=== PATIENT | female | born 1995 | race Caucasian/White ===

== ENCOUNTER 2016-08-01 18:59 | Outpatient (CLI) | payer MEDICAID | END 2016-08-01 19:00 | disposition home or self-care (01) | LOC: EMS 18:59 | PROVIDERS: ATTEND Surgery | DX: R56.9 Unspecified convulsions (principal) | CPT/HCPCS: A0425; A0429 ==

== ENCOUNTER 2016-08-01 19:18 | Emergency (ER) | payer MEDICAID ==
--- NOTE | 2016-08-01 19:59 | ED Physician Documentation ---
PD HPI SEIZURE - Stated complaint Stated Complaint: SZ - Chief complaint Chief Complaint: Neuro - History obtained from History obtained from: Patient - History of Present Illness Timing - onset: How many minutes ago (45), Today Witnessed: Witnessed Number of seizures: Single, Lasted minutes (about 3 minutes) Description of seizure activity: Generalized Injury during seizure: Bit tongue, Other (did not have injury with this one, but had one this morning and fell against dresser, striking rihgt face and head , with pain face and headache today.) Contributing factors: Substance abuse (had used cocaine 2 days ago. Denies other drugs. Has had few other seizures the past few weeks, with one at school in [place]. Had initial one about 6-8 months ago, prior to that no seizure history. Initial one was with cocaine use as well but has had other seizures without drug use.). No: Low blood sugar Similar symptoms before: No diagnosis (apparent seizures. Seen at [facility] in [place] and had head CT and labs few weeks ago after a seizure. Was suggested to see PMD/neurology. She has come to [facility] as family lives here but is staying with friends.) Recently seen: Clinic Review of Systems Constitutional: denies: Fever, Chills Eyes: denies: Loss of vision, Photophobia Nose: denies: Rhinorrhea / runny nose, Congestion Throat: denies: Sore throat Respiratory: denies: Cough GI: reports: Nausea. denies: Abdominal Pain, Vomiting, Diarrhea : reports: Irregular menses (has very infrequent periods normally. Denies eating disorder.). denies: Dysuria, Frequency, Discharge Skin: denies: Abrasion (s), Laceration (s) Neurologic: reports: Headache (today, but not regularly with the seizures.), Head injury (this mornign with seizure). denies: Focal weakness, Numbness, Altered mental status Psychiatric: denies: Depressed, Delusions, Anxiety, Insomnia Endocrine: denies: Weight loss, Weight gain Immunocompromised: denies: Immunocompromised PD PAST MEDICAL HISTORY - Past Medical History Cardiovascular: None Respiratory: None Neuro: Seizure disorder Endocrine/Autoimmune: None Psych: Depression, Anxiety Derm: None - Past Surgical History Past Surgical History: No - Present Medications Home Medications: Ambulatory Orders Medication Instructions Recorded Confirmed Levetiracetam [Keppra] 500 mg PO BID #60 tablet 08/01/16 - Allergies Allergies/Adverse Reactions: Allergies Allergy/AdvReac Type Severity Reaction Status Date / Time No Known Drug Allergies Allergy Verified 08/01/16 19:42 - Social History Does the pt smoke?: No Smoking Status: Never smoker Does the pt drink ETOH?: No Does the pt have substance abuse?: Yes Substance Use and Type: Cocaine/Crack - Family History Family history: reports: Other (no FH of seizures) - Immunizations Immunizations are current?: Yes - POLST Patient has POLST: No Results - Vitals Vitals: Vital Signs - 24 hr 08/01/16 08/01/16 08/01/16 19:19 20:22 22:16 Temperature 37 C Heart Rate 112 H 87 80 Respiratory 18 15 16 Rate Blood Pressure 147/96 H 137/81 H 144/80 H O2 Saturation 100 100 100 08/01/16 22:46 Temperature Heart Rate 78 Respiratory 14 Rate Blood Pressure 115/58 L O2 Saturation 99 Oxygen O2 Source Room air - Labs Labs: Laboratory Tests 08/01/16 08/01/16 08/01/16 21:00 21:00 21:00 WBC 10.6 RBC 4.77 Hgb 14.6 Hct 42.4 MCV 88.9 MCH 30.5 MCHC 34.3 RDW 12.5 Plt Count 241 MPV 9.0 Neut # 7.8 H Lymph # 1.8 Lane # 0.9 Eos # 0.1 Baso # 0.0 Absolute Nucleated RBC 0.01 Nucleated RBCs 0.1 Sodium 135 Potassium 3.7 Chloride 104 Carbon Dioxide 23 Anion Gap 8.0 BUN 5 L Creatinine 0.6 Estimated GFR (MDRD) 129 Glucose 87 Calcium 9.6 Magnesium 2.0 Total Bilirubin 1.7 H AST 23 ALT 17 Alkaline Phosphatase 56 Total Protein 7.6 Albumin 4.6 Globulin 3.0 Albumin/Globulin Ratio 1.5 Lipase 20 L TSH 0.63 Urine Color Urine Clarity Urine pH Ur Specific [place] Urine Protein Urine Glucose (UA) Urine Ketones Urine Occult Blood Urine Nitrite Urine Bilirubin Urine Urobilinogen Ur Leukocyte Esterase Ur Microscopic Review Urine Culture Comments Urine HCG, Qual Urine Opiates Screen Ur Oxycodone Screen Urine Methadone Screen Ur Propoxyphene Screen Ur Barbiturates Screen Ur Tricyclics Screen Ur Phencyclidine Scrn Ur Amphetamine Screen U Methamphetamines Scrn U Benzodiazepines Scrn Urine Cocaine Screen U Cannabinoids Screen Ethyl Alcohol < 5.0 05/30/17 05/30/17 22:00 22:00 WBC RBC Hgb Hct MCV MCH MCHC RDW Plt Count MPV Neut # Lymph # Lane # Eos # Baso # Absolute Nucleated RBC Nucleated RBCs Sodium Potassium Chloride Carbon Dioxide Anion Gap BUN Creatinine Estimated GFR (MDRD) Glucose Calcium Magnesium Total Bilirubin AST ALT Alkaline Phosphatase Total Protein Albumin Globulin Albumin/Globulin Ratio Lipase TSH Urine Color YELLOW Urine Clarity CLEAR Urine pH 5.5 Ur Specific [place] 1.010 Urine Protein NEGATIVE Urine Glucose (UA) NEGATIVE Urine Ketones 15 H Urine Occult Blood NEGATIVE Urine Nitrite NEGATIVE Urine Bilirubin NEGATIVE Urine Urobilinogen 0.2 (NORMAL) Ur Leukocyte Esterase NEGATIVE Ur Microscopic Review NOT INDICATED Urine Culture Comments NOT INDICATED Urine HCG, Qual NEGATIVE Urine Opiates Screen NEGATIVE Ur Oxycodone Screen NEGATIVE Urine Methadone Screen NEGATIVE Ur Propoxyphene Screen NEGATIVE Ur Barbiturates Screen NEGATIVE Ur Tricyclics Screen NEGATIVE Ur Phencyclidine Scrn NEGATIVE Ur Amphetamine Screen NEGATIVE U Methamphetamines Scrn NEGATIVE U Benzodiazepines Scrn NEGATIVE Urine Cocaine Screen POSITIVE H U Cannabinoids Screen NEGATIVE Ethyl Alcohol - Rads (name of study) head CT Radiology: Prelim report reviewed, EMP read contemporaneously (normal) PD MEDICAL DECISION MAKING - ED course Complexity details: reviewed results, considered differential (sounds like true seizures and certainly will be lower seizure threshold with stimulants like cocaine. She declines drug rehab info. Says she will stop using drugs. Talked with her and she prefers not sharing labs/info with her mother. Shared decision about starting antiepileptic pending further eval/workup. Just moved to [facility] to be with family, though is staying with friends. Had been in school in [place]. ), d/w patient Departure - Departure Disposition: Home, Self Care Clinical Impression: Seizure Facial contusion Qualifiers: Encounter type: initial encounter Qualified Code(s): S00.83XA - Contusion of other part of head, initial encounter Condition: Stable Record reviewed to determine appropriate education?: Yes Instructions: ED Seizure New Onset Unk Cause Follow-Up: Gaye Lopez MD [Primary Care Provider] - Physicians [Provider Group] [facility] [Provider Group] [facility] [Provider Group] Prescriptions: Levetiracetam [Keppra] 500 mg PO BID #60 tablet Comments: Establish local primary care - I listed a few clinics in [place] to try. Also want to see Neurologist about further testing for the seizures. You can call the group and see if they accept referral from ED or need primary care referral. Meanwhile, drink lots of fluids. Avoid stimulants. Start seizure medication until further see by primary care or neurology. Discharge Date/Time: 08/01/16 22:46
[2016-08-01] MEDS ORDERED: SODIUM CHLORIDE 0.9% 1,000 ML IV ONE (20:22)
[2016-08-01] MEDS ORDERED: levETIRAcetam INJ 500 MG in SODIUM CHLORIDE 0.9% 100ML 100 ML IV STA (20:23)
--- NOTE | 2016-08-01 20:58 | CT Preliminary Report ---
Exam: CT Head W/O IMPRESSION: No CT evidence of acute intracranial abnormality, specifically no CT evidence of acute infarct, intra cranial hemorrhage, mass effect, midline shift, or hydrocephalus. [facility] SITE ID: [id number]
--- NOTE | 2016-08-01 21:00 | CT Report ---
EXAM: CT HEAD EXAM DATE: 08/01/2016 08:37 PM. CLINICAL HISTORY: Seizures with facial/head injury. COMPARISON: None. TECHNIQUE: Multiaxial CT images were obtained from the foramen magnum to the vertex. IV contrast: Non e. Reformats: Coronal. In accordance with CT protocol optimization, one or more of the following dose reduction techniques w ere utilized for this exam: automated exposure control, adjustment of mA and/or KV based on patient s ize, or use of iterative reconstructive technique. FINDINGS: Parenchyma: No intraparenchymal hemorrhage. No evidence of mass, midline shift, or CT findings of inf arction. Bennett-white differentiation is distinct. Extraaxial Spaces: Normal for age. No subdural or epidural collections identified. Ventricles: Normal in size and position. Sinuses: Moderate mucosal thickening left maxillary sinus. Imaged paranasal sinuses otherwise, orbits , and mastoids show no significant abnormality. Bones: No evidence of fracture or calvarial defect. Other: None. IMPRESSION: No CT evidence of acute intracranial abnormality, specifically no CT evidence of acute infarct, intra cranial hemorrhage, mass effect, midline shift, or hydrocephalus. [facility] Referring Provider Line: [phone] SITE ID: [id number]
[2016-08-01 21:10] LABS: BASOPHILS % (AUTO) 0.5 %; EOSINOPHILS # (AUTO) 0.1 10^3/uL (0.0-0.7); EOSINOPHILS % (AUTO) 0.9 %; HCT - HEMATOCRIT 42.4 % (37.0-47.0); HGB - HEMOGLOBIN 14.6 g/dL (12.0-16.0); LYMPHOCYTES # (AUTO) 1.8 10^3/uL (1.5-3.5); LYMPHOCYTES % (AUTO) 16.8 %; MEAN CORPUSCULAR HEMOGLOBIN 30.5 pg (27.0-31.0); MEAN CORPUSCULAR HGB CONC 34.3 g/dL (32.0-36.0); MEAN CORPUSCULAR VOLUME 88.9 fL (81.0-99.0); MONOCYTES # (AUTO) 0.9 10^3/uL (0.0-1.0); MONOCYTES % (AUTO) 8.5 %; NEUTROPHILS # (AUTO) 7.8 10^3/uL (1.5-6.6); NEUTROPHILS % (AUTO) 73.3 %; NUCLEATED RED BLOOD CELLS AUTO 0.1 /100WBC; RED BLOOD COUNT 4.77 10^6/uL (4.20-5.40); RED CELL DISTRIBUTION WIDTH 12.5 % (12.0-15.0); UNCORRECTED WHITE BLOOD COUNT 10.6 x10^3/uL; WHITE BLOOD COUNT 10.6 x10^3/uL (4.8-10.8)
[2016-08-01 21:24] LABS: ALBUMIN/GLOBULIN RATIO 1.5 (1.0-2.2); BILIRUBIN,TOTAL 1.7 mg/dL (0.2-1.0); BUN - BLOOD UREA NITROGEN 5 mg/dL (6-20); CALCIUM 9.6 mg/dL (8.5-10.3); CARBON DIOXIDE - CO2 23 mmol/L (21-32); CHLORIDE 104 mmol/L (101-111); CREATININE 0.6 mg/dL (0.4-1.0); GFR - MDRD 129 (>89); GLUCOSE 87 mg/dL (70-100); LIPASE 20 U/L (22-51); POTASSIUM 3.7 mmol/L (3.5-5.0); SODIUM 135 mmol/L (135-145); TOTAL PROTEIN 7.6 g/dL (6.7-8.2)
[2016-08-01 22:10] LABS: BILIRUBIN,URINE NEGATIVE (NEGATIVE); PH,URINE 5.5 PH (5.0-7.5)
[2016-08-01 22:12] LABS: HCG UR QUAL NEGATIVE; UA CHARGE (STRIP ONLY) YES; UR CULTURE IF IND NOT INDICATED
[2016-08-01 22:50] VITALS: BP 115/58
== END 2016-08-01 22:46 | disposition home or self-care (01) ==
LOC: EDUNIT# → ED 19:18
DX: R56.9 Unspecified convulsions (principal); S00.83XA Contusion of other part of head, initial encounter; S00.81XA Abrasion of other part of head, initial encounter; S00.512A Abrasion of oral cavity, initial encounter; W01.190A Fall on same level from slipping, tripping and stumbling with subsequent striking against furniture, initial encounter; F14.10 Cocaine abuse, uncomplicated
CPT/HCPCS: 36415; 70450; 80053; 80306; 80320; 81001; 81003; 81025; 83690; 83735; 84443; 85025; 87086; 93005; 96361; 96365; 99284; 99285

== ENCOUNTER 2016-10-29 14:25 | Emergency (ER) | payer MEDICAID ==
[2016-10-29 15:09] LABS: BILIRUBIN,URINE NEGATIVE (NEGATIVE); PH,URINE 6.5 PH (5.0-7.5)
[2016-10-29 15:11] LABS: HCG UR QUAL POSITIVE; UA CHARGE (STRIP ONLY) YES; UR CULTURE IF IND NOT INDICATED
[2016-10-29 15:14] LABS: BASOPHILS # (AUTO) 0.1 10^3/uL (0.0-0.1); BASOPHILS % (AUTO) 0.7 %; EOSINOPHILS # (AUTO) 0.2 10^3/uL (0.0-0.7); EOSINOPHILS % (AUTO) 2.5 %; HCT - HEMATOCRIT 35.6 % (37.0-47.0); HGB - HEMOGLOBIN 12.1 g/dL (12.0-16.0); LYMPHOCYTES # (AUTO) 2.4 10^3/uL (1.5-3.5); LYMPHOCYTES % (AUTO) 25.4 %; MEAN CORPUSCULAR HEMOGLOBIN 29.5 pg (27.0-31.0); MEAN CORPUSCULAR HGB CONC 34.1 g/dL (32.0-36.0); MEAN CORPUSCULAR VOLUME 86.5 fL (81.0-99.0); MEAN PLATELET VOLUME 8.6 fL (7.9-10.8); MONOCYTES # (AUTO) 0.6 10^3/uL (0.0-1.0); MONOCYTES % (AUTO) 6.1 %; NEUTROPHILS # (AUTO) 6.2 10^3/uL (1.5-6.6); NEUTROPHILS % (AUTO) 65.3 %; NUCLEATED RED BLOOD CELLS AUTO 0.1 /100WBC; RED BLOOD COUNT 4.11 10^6/uL (4.20-5.40); RED CELL DISTRIBUTION WIDTH 14.3 % (12.0-15.0); UNCORRECTED WHITE BLOOD COUNT 9.5 x10^3/uL; WHITE BLOOD COUNT 9.5 x10^3/uL (4.8-10.8)
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
[2016-10-29 15:21] LABS: ALBUMIN/GLOBULIN RATIO 1.2 (1.0-2.2); BILIRUBIN,TOTAL 0.8 mg/dL (0.2-1.0); BUN - BLOOD UREA NITROGEN 14 mg/dL (6-20); CARBON DIOXIDE - CO2 22 mmol/L (21-32); CHLORIDE 105 mmol/L (101-111); CREATININE 0.5 mg/dL (0.4-1.0); GFR - MDRD 159 (>89); GLUCOSE 87 mg/dL (70-100); LIPASE 26 U/L (22-51); POTASSIUM 3.9 mmol/L (3.5-5.0); SALICYLATE < 6.0 mg/dL; SODIUM 134 mmol/L (135-145); TOTAL PROTEIN 7.4 g/dL (6.7-8.2)
[2016-10-29 15:22] LABS: ACETAMINOPHEN < 10 ug/mL (10-30)
[2016-10-29 16:58] VITALS: BP 120/59
== END 2016-10-29 17:15 | disposition home or self-care (01) ==
LOC: ED 14:25
DX: F32.9 Major depressive disorder, single episode, unspecified (principal); S50.812A Abrasion of left forearm, initial encounter; X78.0XXA Intentional self-harm by sharp glass, initial encounter; Y92.039 Unspecified place in apartment as the place of occurrence of the external cause; O26.891 Other specified pregnancy related conditions, first trimester; F14.90 Cocaine use, unspecified, uncomplicated; Z3A.01 Less than 8 weeks gestation of pregnancy
CPT/HCPCS: 36415; 80053; 80306; 80307; 80320; 80329; 81001; 81003; 81025; 83690; 85025; 87086; 99283; 99284

== ENCOUNTER 2016-12-07 11:17 | Outpatient (CLI) | payer MEDICAID ==
[2016-12-07 11:53] LABS: BASOPHILS % (AUTO) 0.5 %; EOSINOPHILS # (AUTO) 0.1 10^3/uL (0.0-0.7); HCT - HEMATOCRIT 36.7 % (37.0-47.0); HGB - HEMOGLOBIN 12.4 g/dL (12.0-16.0); LYMPHOCYTES # (AUTO) 1.6 10^3/uL (1.5-3.5); LYMPHOCYTES % (AUTO) 23.1 %; MEAN CORPUSCULAR HEMOGLOBIN 29.7 pg (27.0-31.0); MEAN CORPUSCULAR HGB CONC 33.8 g/dL (32.0-36.0); MEAN CORPUSCULAR VOLUME 87.8 fL (81.0-99.0); MEAN PLATELET VOLUME 8.8 fL (7.9-10.8); MONOCYTES # (AUTO) 0.4 10^3/uL (0.0-1.0); MONOCYTES % (AUTO) 6.2 %; NEUTROPHILS # (AUTO) 4.7 10^3/uL (1.5-6.6); NEUTROPHILS % (AUTO) 69.2 %; RED BLOOD COUNT 4.18 10^6/uL (4.20-5.40); RED CELL DISTRIBUTION WIDTH 14.3 % (12.0-15.0); UNCORRECTED WHITE BLOOD COUNT 6.8 x10^3/uL; WHITE BLOOD COUNT 6.8 x10^3/uL (4.8-10.8)
[2016-12-07 11:54] LABS: BILIRUBIN,URINE NEGATIVE (NEGATIVE); PH,URINE 5.5 PH (5.0-7.5)
[2016-12-07 12:11] LABS: WBC,URINE 0-3 /HPF (0-5)
== END 2016-12-07 11:18 | disposition home or self-care (01) ==
LOC: LAB 11:17
PROVIDERS: ATTEND Registered Nurse
DX: Z36.9 Encounter for antenatal screening, unspecified (principal)
CPT/HCPCS: 36415; 80306; 81001; 85025; 86762; 86850; 86900; 86901; 87340; 87389; 87491; 87591

== ENCOUNTER 2016-12-07 12:00 | Outpatient (CLI) | payer MEDICAID | END 2016-12-07 12:01 | disposition home or self-care (01) | LOC: LAB.R 12:00 | PROVIDERS: ATTEND Registered Nurse | DX: Z36.9 Encounter for antenatal screening, unspecified (principal) | CPT/HCPCS: 80306; 87491; 87591 ==

== ENCOUNTER 2016-12-12 07:29 | Outpatient (CLI) | payer MEDICAID ==
--- NOTE | 2016-12-13 14:50 | Ultrasound Report ---
OB ULTRASOUND: 12/12/2016 CLINICAL INDICATION: anatomy. TECHNIQUE: Real-time scanning was performed with insurance claims representative static images obtained. LAST MENSTRUAL PERIOD unsure Clinical Age 22 weeks 1 day US Age 17 weeks 5 days EFW Hadlock 204 grams EFW% Hadlock --- Heart Rate 148 bpm EDC 04/16/2017 US EDC 05/17/2017 BPD Hadlock 17 weeks 5 days; Mean mm 38.3 HC Hadlock 17 weeks 4 days; Mean mm 143.8 AC Hadlock 17 weeks 5 days; Mean mm 120.8 FL Hadlock 17 weeks 4 days; Mean mm 24.9 Presentation cephalic Placental Location anterior Cervical Length 3.5 cm Amniotic Fluid 3.6 cm FINDINGS: There is a single viable intrauterine gestation, in cephalic presentation. heart rate is 148 BPM. The placenta is anterior, without evidence of previa. The umbilical cord insertion appears eccentric to marginal. This should be reevaluated in the third trimester. Amniotic fluid volume is subjectively normal. By size, the fetus measures 17 weeks 5 days (22 weeks 1 day by reported outside ultrasound). The following anatomic structures were visualized and appear normal: The intracranial contents, including the ventricles and posterior fossa; the spine; the heart, including 4 chamber view and outflow tracts, and diaphragm; the abdominal contents, including the stomach, the bilateral kidneys, and urinary bladder, as well as a normal 3 vessel cord insertion; 4 limbs. Visualization of the nose and lips is limited by positioning. No free fluid or adnexal lesion is identified. IMPRESSION: SINGLE VIABLE INTRAUTERINE GESTATION, MEASURING 17 WEEKS 5 DAYS BY SIZE, 3-1/2 WEEKS SMALLER THAN EXPECTED BY OUTSIDE ULTRASOUND DATING. ESTIMATED DUE DATE BY TODAY'S ULTRASOUND IS 05/17/2017. SUBOPTIMAL VISUALIZATION OF NOSE AND LIPS. OTHERWISE, THE ANATOMIC SURVEY APPEARS UNREMARKABLE. ECCENTRIC TO MARGINAL UMBILICAL CORD INSERTION INTO THE PLACENTA. THIS SHOULD BE REEVALUATED IN THE THIRD TRIMESTER. MTDD
== END 2016-12-12 07:30 | disposition home or self-care (01) ==
LOC: DI 07:29
PROVIDERS: ATTEND Registered Nurse
DX: Z34.82 Encounter for supervision of other normal pregnancy, second trimester (principal)
CPT/HCPCS: 76811

== ENCOUNTER 2017-06-09 18:13 | Emergency (ER) | payer MEDICAID, OTHER ==
[2017-06-09] MEDS ORDERED: oxyCODONE 5 MG TABLET PO STA (19:53)
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
[2017-06-09] MEDS ORDERED: ONDANSETRON ODT 4 MG TABLET TL STA (20:27)
--- NOTE | 2017-06-09 20:50 | CT Report ---
EXAM: CT HEAD EXAM DATE: 06/09/2017 08:18 PM. CLINICAL HISTORY: Head injury. COMPARISON: None. TECHNIQUE: Multiaxial CT images were obtained from the foramen magnum to the vertex. Reformats: Coron al. IV contrast: None. In accordance with CT protocol optimization, one or more of the following dose reduction techniques w ere utilized for this exam: automated exposure control, adjustment of mA and/or KV based on patient s ize, or use of iterative reconstructive technique. FINDINGS: Parenchyma: No intraparenchymal hemorrhage. No evidence of mass, midline shift, or CT findings of inf arction. Bennett-white differentiation is distinct. Extraaxial Spaces: Normal for age. No subdural or epidural collections identified. Ventricles: Normal in size and position. Sinuses and Orbits: Imaged paranasal sinuses, orbits, and mastoids show no significant abnormality. Bones: No evidence of fracture or calvarial defect. Other: None. IMPRESSION: Normal head CT. [facility] Referring Provider Line: [phone] SITE ID: [id number]
--- NOTE | 2017-06-09 20:50 | CT Preliminary Report ---
Exam: CT HEAD W/O IMPRESSION: Normal head CT. [facility] SITE ID: [id number]
--- NOTE | 2017-06-09 20:53 | CT Report ---
EXAM: CT MAXILLOFACIAL WITHOUT CONTRAST EXAM DATE: 06/09/2017 08:25 PM. CLINICAL HISTORY: Head injury, left eye redness and bruising. COMPARISONS: None. TECHNIQUE: Thin-section axial images were acquired of the face without contrast. Post-processing: Cor onal and sagittal reformats. Other: None. In accordance with CT protocol optimization, one or more of the following dose reduction techniques w ere utilized for this exam: automated exposure control, adjustment of mA and/or KV based on patient s ize, or use of iterative reconstructive technique. FINDINGS: Soft Tissue: Mild left supraorbital soft tissue density in the subcutaneous tissues, likely minimal h ematoma. Orbits: Symmetric and unremarkable. Bones: No fracture or bone lesion. Temporomandibular Joints: The temporomandibular joints are symmetric and normally located. Sinuses: Rightward bony spur of the nasal septum. Other: None. IMPRESSION: Minimal left periorbital subcutaneous hematoma without evidence of facial fracture. [facility] Referring Provider Line: [phone] SITE ID: [id number]
[2017-06-09 21:04] VITALS: BP 127/77
== END 2017-06-09 21:04 | disposition home or self-care (01) ==
LOC: ED 18:13
DX: S00.83XA Contusion of other part of head, initial encounter (principal); S09.90XA Unspecified injury of head, initial encounter; S40.022A Contusion of left upper arm, initial encounter; Y04.0XXA Assault by unarmed brawl or fight, initial encounter
CPT/HCPCS: 70450; 70486; 99283; 99284; A9270; Q0162

== ENCOUNTER 2017-08-12 09:35 | Outpatient (CLI) | payer MEDICAID, OTHER | END 2017-08-12 09:36 | disposition critical access hospital (66) | LOC: EMS 09:35 | PROVIDERS: ATTEND Surgery | DX: M54.5 Low back pain (principal); R22.0 Localized swelling, mass and lump, head; Y04.8XXA Assault by other bodily force, initial encounter | CPT/HCPCS: A0425; A0429 ==

== ENCOUNTER 2017-08-12 09:56 | Emergency (ER) | payer MEDICAID, OTHER ==
[2017-08-12 10:34] LABS: BASOPHILS # (AUTO) 0.1 10^3/uL (0.0-0.1); BASOPHILS % (AUTO) 1.1 %; EOSINOPHILS # (AUTO) 0.1 10^3/uL (0.0-0.7); EOSINOPHILS % (AUTO) 1.2 %; HGB - HEMOGLOBIN 13.5 g/dL (12.0-16.0); LYMPHOCYTES # (AUTO) 2.1 10^3/uL (1.5-3.5); LYMPHOCYTES % (AUTO) 36.3 %; MEAN CORPUSCULAR HEMOGLOBIN 29.2 pg (27.0-31.0); MEAN CORPUSCULAR HGB CONC 33.1 g/dL (32.0-36.0); MEAN CORPUSCULAR VOLUME 88.2 fL (81.0-99.0); MEAN PLATELET VOLUME 8.7 fL (7.9-10.8); MONOCYTES # (AUTO) 0.6 10^3/uL (0.0-1.0); MONOCYTES % (AUTO) 10.7 %; NEUTROPHILS # (AUTO) 2.9 10^3/uL (1.5-6.6); NEUTROPHILS % (AUTO) 50.7 %; PLT - PLATELET COUNT 261 10^3/uL (130-450); RED BLOOD COUNT 4.64 10^6/uL (4.20-5.40); RED CELL DISTRIBUTION WIDTH 13.6 % (12.0-15.0); WHITE BLOOD COUNT 5.7 x10^3/uL (4.8-10.8)
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
[2017-08-12 10:51] LABS: ALBUMIN/GLOBULIN RATIO 1.1 (1.0-2.2); ALKALINE PHOSPHATASE 48 IU/L (42-121); ALT ALANINE AMINOTRANSFERASE 40 IU/L (10-60); AST ASPARTATE AMINOTRANSFERASE 30 IU/L (10-42); BILIRUBIN,TOTAL 1.8 mg/dL (0.2-1.0); BUN - BLOOD UREA NITROGEN 9 mg/dL (6-20); CALCIUM 9.1 mg/dL (8.5-10.3); CARBON DIOXIDE - CO2 25 mmol/L (21-32); CHLORIDE 103 mmol/L (101-111); CREATININE 0.6 mg/dL (0.4-1.0); GFR - MDRD 127 (>89); GLUCOSE 85 mg/dL (70-100); LIPASE 27 U/L (22-51); SALICYLATE < 6.0 mg/dL; SODIUM 134 mmol/L (135-145); TOTAL PROTEIN 7.6 g/dL (6.7-8.2)
[2017-08-12 10:55] LABS: ACETAMINOPHEN < 10 ug/mL (10-30)
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
[2017-08-12 15:18] VITALS: BP 104/71
[2017-08-12] MEDS ORDERED: LORazepam 0.5 MG TABLET PO STA (18:14)
== END 2017-08-12 18:25 | disposition left against medical advice (07) ==
LOC: EDUNIT# → ED 09:56 → EEVIPCON 09:56 → ED 18:25
DX: F41.9 Anxiety disorder, unspecified (principal); S00.03XA Contusion of scalp, initial encounter; S20.229A Contusion of unspecified back wall of thorax, initial encounter; Y04.8XXA Assault by other bodily force, initial encounter; F32.9 Major depressive disorder, single episode, unspecified
CPT/HCPCS: 36415; 70450; 80053; 80307; 80320; 80329; 83690; 84443; 85025; 99283; 99284

== ENCOUNTER 2017-10-14 12:13 | Emergency (ER) | payer MEDICAID, OTHER ==
[2017-10-14 12:20] VITALS: BP 122/75
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
== END 2017-10-14 12:53 | disposition home or self-care (01) ==
LOC: ED 12:13
DX: Z72.51 High risk heterosexual behavior (principal)
CPT/HCPCS: 99282

== ENCOUNTER 2017-10-23 15:28 | Outpatient (CLI) | payer MEDICAID ==
[2017-10-23 19:12] LABS: HCG UR QUAL NEGATIVE
== END 2017-10-23 15:29 | disposition home or self-care (01) ==
LOC: LAB.R 15:28
PROVIDERS: ATTEND Nurse Practitioner
DX: Z72.51 High risk heterosexual behavior (principal); Z30.09 Encounter for other general counseling and advice on contraception
CPT/HCPCS: 81025

== ENCOUNTER 2019-02-27 06:39 | Emergency (ER) | payer MEDICAID ==
[2019-02-27 06:51] VITALS: BP 128/78
--- NOTE | 2019-02-27 07:09 | ED Physician Documentation ---
History of Present Illness - Stated complaint Stated Complaint: FEMALE - Chief complaint Chief Complaint: Abd Pain - Additonal information Additional information: This is a 23 year old female who denies past medical history who presents with concern for UTI. Patient gets UTIs from time to time, and For the last 24 hours had increased frequency, urgency, hesitancy and it will bit of burning all. She does have some very mild who tenderness that began just this morning as fever. No vomiting. No upper abdominal pain. No abnormal vaginal bleeding or pelvic symptoms. Review of Systems Constitutional: denies: Fever : reports: Dysuria, Frequency, Hesitancy PD PAST MEDICAL HISTORY - Past Medical History Past Medical History: Yes Cardiovascular: None Respiratory: None Endocrine/Autoimmune: None Psych: Depression, Anxiety Derm: None - Past Surgical History Past Surgical History: No - Present Medications Home Medications: Ambulatory Orders Medication Instructions Recorded Confirmed buPROPion [Wellbutrin Sr] 100 mg PO DAILY 06/09/17 02/27/19 Nitrofurantoin Monohyd/M-Cryst 100 mg PO BID #10 capsule 02/27/19 [Macrobid 100 mg Capsule] Sertraline HCl 25 mg PO QPM 02/27/19 02/27/19 - Allergies Allergies/Adverse Reactions: Allergies Allergy/AdvReac Type Severity Reaction Status Date / Time No Known Drug Allergies Allergy Verified 02/27/19 06:51 - Social History Does the pt smoke?: No Smoking Status: Never smoker Does the pt drink ETOH?: No Does the pt have substance abuse?: Yes - Immunizations Immunizations are current?: Yes - POLST Patient has POLST: No PD ED PE NORMAL - General General: Alert and oriented X 3 - Cardiac Cardiac: RRR - Respiratory Respiratory: No respiratory distress - Abdomen Abdomen: Soft, Non distended, Other (Very mild suprapubic tenderness with deep palpation, otherwise nontender) - Neuro Neuro: Alert and oriented X 3 Results - Vitals Vitals: Vital Signs - 24 hr 02/27/19 06:49 Temperature 36.9 C Heart Rate 84 Respiratory 18 Rate Blood Pressure 128/78 O2 Saturation 98 Oxygen O2 Source Room air - Labs Labs: Laboratory Tests 02/27/19 07:00 Urine Color YELLOW Urine Clarity HAZY Urine pH 6.5 Ur Specific [place] 1.020 Urine Protein 100 H Urine Glucose (UA) NEGATIVE Urine Ketones NEGATIVE Urine Occult Blood LARGE H Urine Nitrite POSITIVE H Urine Bilirubin NEGATIVE Urine Urobilinogen 0.2 (NORMAL) Ur Leukocyte Esterase MODERATE H Ur Microscopic Review INDICATED Urine Culture Comments Not Reportable Urine HCG, Qual NEGATIVE PD MEDICAL DECISION MAKING - ED course ED course: Patient presents with classic symptoms for urinary tract infection, she denies pelvic complaints, she is just finishing her period. Her abdomen is soft, she has a very small amount of suprapubic tenderness, otherwise her abdomen is nontender, and specifically no tenderness in the right lower quadrant. Her vitals are unremarkable and she is well-appearing. Urine is consistent with a UTI and is nitrite positive. I prescribed her Macrobid, reviewed return precautions and patient was discharged home in the care of her family Departure - Departure Disposition: Home, Self Care Clinical Impression: UTI (urinary tract infection) Qualifiers: Urinary tract infection type: acute cystitis Hematuria presence: without hematuria Qualified Code(s): N30.00 - Acute cystitis without hematuria Condition: Good Instructions: ED UTI Cystitis Female Follow-Up: Your,PCP [Other] Prescriptions: Nitrofurantoin Monohyd/M-Cryst [Macrobid 100 mg Capsule] 100 mg PO BID #10 capsule Comments: You appear to have a urinary tract infection. Please take the antibiotic as prescribed, if you are having not improving or worsening symptoms, especially increasing abdominal pain, vomiting, or fever, return to the emergency department.
[2019-02-27 07:17] LABS: BILIRUBIN,URINE NEGATIVE (NEGATIVE); GLUCOSE, URINE (UA) NEGATIVE (NEGATIVE); KETONES,URINE (UA) NEGATIVE (NEGATIVE); LEUKOCYTE ESTERASE, URINE MODERATE (NEGATIVE); NITRITE,URINE POSITIVE (NEGATIVE); OCCULT BLOOD,URINE LARGE (NEGATIVE); PH,URINE 6.5 PH (5.0-7.5); PROTEIN,URINE 100 mg/dL (NEGATIVE); UROBILINOGEN,URINE 0.2 (NORMAL) E.U./dL (NORMAL)
[2019-02-27 07:21] LABS: CLARITY,URINE HAZY (CLEAR); HCG UR QUAL NEGATIVE
[2019-02-27 07:28] LABS: BACTERIA,URINE Few /HPF (None Seen); SQUAMOUS EPITHELIAL CELL,UR FEW Squamous (<= Few)
== END 2019-02-27 07:40 | disposition home or self-care (01) ==
LOC: ED 06:39
DX: N30.00 Acute cystitis without hematuria (principal)
CPT/HCPCS: 81001; 81003; 81025; 87086; 99283